=== PATIENT | male | born 1965 | race Caucasian/White ===

== ENCOUNTER 2025-01-15 18:26 | Emergency (ER) | payer SELFPAY ==
[~2025-01-15] VITALS: Ht 188 cm; Wt 82.0 kg
[2025-01-15 18:29] VITALS: O2SAT 98
[2025-01-15 19:21] VITALS: BP 142/82; PULSE 72; RESP 16; TEMP 36.8; O2SAT 98
== END 2025-01-15 22:42 | disposition home or self-care (01) ==
LOC: ER 18:26
DX: F10.129 Alcohol abuse with intoxication, unspecified (principal); Y90.9 Presence of alcohol in blood, level not specified
CPT/HCPCS: 99283